=== PATIENT | female | born 1960 | race Caucasian/White ===

== ENCOUNTER → 2016-04-23 | Outpatient (CLI) | payer MEDICARE, OTHER ==
[2016-04-23 11:42] LABS: Basophils # (A) 0.1 k/uL (0-0.2); Basophils % (A) 1 %; CH 25.6; CHCM 31.6; Eosinophils # (A) 0.1 k/uL (0-0.7); Eosinophils % (A) 2 %; HCT 44.7 % (34.0-46.0); HDW 2.53; HGB 13.9 gm/dL (11.4-16.0); Luc # (Auto) 0.13; Luc % (Auto) 2; Lymphocytes # (A) 2.3 k/uL (1.0-4.8); Lymphocytes % (A) 27 %; MCH 25.4 pg (25.0-35.0); MCHC 31.1 g/dL (31.0-37.0); MCV 81.4 fL (80.0-100.0); Monocytes # (A) 0.5 k/uL (0-1.0); Monocytes % (A) 6 %; Neutrophils # (A) 5.4 k/uL (1.3-7.7); Neutrophils % (A) 63 %; RBC 5.49 m/uL (3.80-5.40); WBC 8.6 k/uL (3.8-10.6); WBC (Perox) 8.53
[2016-04-23 12:03] LABS: ALT 29 U/L (9-52); AST 29 U/L (14-36); Alkaline Phosphatase 54 U/L (38-126); Anion Gap 18 mmol/L; Blood Urea Nitrogen 22 mg/dL (7-17); Calcium 9.3 mg/dL (8.4-10.2); Carbon Dioxide 22 mmol/L (22-30); Chloride 100 mmol/L (98-107); Cholesterol 126 mg/dL (<200); Glucose 152 mg/dL (74-99); HDL Cholesterol 44 mg/dL (40-60); Non-African American GFR(MDRD) 48 (>60 ml/min/1.73 sqM); Sodium 140 mmol/L (137-145); Total Bilirubin 0.8 mg/dL (0.2-1.3); Total Protein 7.8 g/dL (6.3-8.2); Triglycerides 142 mg/dL (<150)
[2016-04-23 12:46] LABS: Hepatitis C Virus IgG Index 0.05
[2016-04-23 13:37] LABS: Hepatitis C Virus IgG Ab Negative (Negative)
== END | disposition home or self-care (01) ==
LOC: LABWHC1 11:11
PROVIDERS: ATTEND Family Medicine
DX: E11.9 Type 2 diabetes mellitus without complications (principal); Z13.9 Encounter for screening, unspecified
CPT/HCPCS: 36415; 80053; 80061; 82043; 83036; 84443; 85025; 86803

== ENCOUNTER → 2016-10-29 | Outpatient (CLI) | payer MEDICARE, OTHER ==
[2016-10-29 11:07] LABS: ALT 33 U/L (9-52); AST 21 U/L (14-36); Alkaline Phosphatase 58 U/L (38-126); Anion Gap 16 mmol/L; Blood Urea Nitrogen 21 mg/dL (7-17); Carbon Dioxide 19 mmol/L (22-30); Chloride 106 mmol/L (98-107); Cholesterol 126 mg/dL (<200); Glucose 137 mg/dL (74-99); HDL Cholesterol 36 mg/dL (40-60); Non-African American GFR(MDRD) >60 (>60 ml/min/1.73 sqM); Potassium 4.7 mmol/L (3.5-5.1); Sodium 141 mmol/L (137-145); Total Bilirubin 0.4 mg/dL (0.2-1.3); Total Protein 7.2 g/dL (6.3-8.2)
[2016-10-29 12:26] LABS: Hemoglobin A1C 6.5 % (4.2-6.1)
== END ==
LOC: LABWHC1 10:23
PROVIDERS: ATTEND Family Medicine
DX: E11.9 Type 2 diabetes mellitus without complications (principal)
CPT/HCPCS: 36415; 80053; 80061; 83036

== ENCOUNTER → 2017-04-28 | Outpatient (CLI) | payer MEDICARE, OTHER ==
[2017-04-28 10:58] LABS: ALT 19 U/L (9-52); AST 17 U/L (14-36); Albumin 3.9 g/dL (3.5-5.0); Alkaline Phosphatase 56 U/L (38-126); Anion Gap 16 mmol/L; Blood Urea Nitrogen 20 mg/dL (7-17); Calcium 9.3 mg/dL (8.4-10.2); Carbon Dioxide 21 mmol/L (22-30); Chloride 103 mmol/L (98-107); Cholesterol 137 mg/dL (<200); Glucose 141 mg/dL (74-99); HDL Cholesterol 46 mg/dL (40-60); LDL Cholesterol,Calculated 71 mg/dL (0-99); Potassium 4.6 mmol/L (3.5-5.1); Sodium 140 mmol/L (137-145); Total Bilirubin 0.3 mg/dL (0.2-1.3); Total Protein 7.3 g/dL (6.3-8.2); Triglycerides 99 mg/dL (<150)
[2017-04-28 11:02] LABS: Basophils % (A) 1 %; Eosinophils # (A) 0.2 k/uL (0-0.7); Eosinophils % (A) 2 %; HCT 43.2 % (34.0-46.0); HGB 12.9 gm/dL (11.4-16.0); Hypochromasia Moderate; Lymphocytes # (A) 1.7 k/uL (1.0-4.8); Lymphocytes % (A) 22 %; MCHC 29.9 g/dL (31.0-37.0); MCV 80.4 fL (80.0-100.0); Mean Platelet Volume 7.6; Monocytes # (A) 0.4 k/uL (0-1.0); Monocytes % (A) 5 %; Neutrophils # (A) 5.4 k/uL (1.3-7.7); Neutrophils % (A) 69 %; Platelet Count 284 k/uL (150-450); RBC 5.37 m/uL (3.80-5.40); RDW 13.5 % (11.5-15.5); WBC 7.9 k/uL (3.8-10.6)
[2017-04-28 19:13] LABS: Hemoglobin A1C 6.2 % (4.0-6.0)
== END | disposition home or self-care (01) ==
LOC: LABWHC1 09:48
PROVIDERS: ATTEND Family Medicine
DX: E11.9 Type 2 diabetes mellitus without complications (principal)
CPT/HCPCS: 36415; 80053; 80061; 82043; 82570; 83036; 84443; 85025

== ENCOUNTER → 2018-07-29 | Outpatient (CLI) | payer MEDICARE, OTHER ==
[2018-07-29 20:33] LABS: Anion Gap 12.3 mmol/L (4.00-12.00); Calcium 9.4 mg/dL (8.7-10.3); Carbon Dioxide 19.7 mmol/L (21.6-31.8); Potassium 4.4 mmol/L (3.5-5.5)
[2018-07-29 21:39] LABS: Hemoglobin A1C 5.9 % (4.0-6.0)
== END | disposition home or self-care (01) ==
LOC: LABWHC1 11:47
PROVIDERS: ATTEND Family Medicine
DX: E11.22 Type 2 diabetes mellitus with diabetic chronic kidney disease (principal)
CPT/HCPCS: 36415; 80048; 83036

== ENCOUNTER → 2018-10-28 | Outpatient (CLI) | payer MEDICARE, OTHER ==
[2018-10-28 16:54] LABS: African American GFR (CKD) 70.9 (60.0-200.0); Albumin 4.4 g/dL (3.80-4.90); Albumin/Globulin Ratio 1.76 (1.60-3.17); Anion Gap 10.5 mmol/L (4.00-12.00); Calcium 9.1 mg/dL (8.7-10.3); Carbon Dioxide 23.5 mmol/L (21.6-31.8); Chol/HDL Ratio 3.27; Globulin 2.5 g/dL (1.6-3.3); LDL Cholesterol,Calculated 62.4 mg/dL (0.0-131.0); Potassium 4.4 mmol/L (3.5-5.5); Total Bilirubin 0.5 mg/dL (0.2-1.2); Total Protein 6.9 g/dL (6.2-8.2); VLDL Calculation 21.6 mg/dL (5.00-40.00)
[2018-10-28 18:56] LABS: Hemoglobin A1C 5.6 % (4.0-6.0)
== END | disposition home or self-care (01) ==
LOC: LABWHC1 10:03
PROVIDERS: ATTEND Family Medicine
DX: E11.9 Type 2 diabetes mellitus without complications (principal)
CPT/HCPCS: 36415; 80053; 80061; 83036

== ENCOUNTER → 2019-05-02 | Outpatient (CLI) | payer MEDICARE, OTHER ==
[2019-05-02 11:45] LABS: Basophils % (A) 1 %; Eosinophils # (A) 0.2 k/uL (0-0.7); Eosinophils % (A) 2 %; HCT 45.5 % (34.0-46.0); HGB 14.5 gm/dL (11.4-16.0); Lymphocytes # (A) 1.6 k/uL (1.0-4.8); Lymphocytes % (A) 22 %; MCH 25.9 pg (25.0-35.0); MCHC 31.9 g/dL (31.0-37.0); MCV 81.2 fL (80.0-100.0); Mean Platelet Volume 8.3; Monocytes # (A) 0.4 k/uL (0-1.0); Monocytes % (A) 6 %; Neutrophils # (A) 4.9 k/uL (1.3-7.7); Neutrophils % (A) 68 %; Platelet Count 309 k/uL (150-450); RBC 5.61 m/uL (3.80-5.40); RDW 13.5 % (11.5-15.5); WBC 7.3 k/uL (3.8-10.6)
[2019-05-02 16:53] LABS: Albumin 4.8 g/dL (3.80-4.90); Albumin/Globulin Ratio 1.66 (1.60-3.17); Anion Gap 7.2 mmol/L (4.00-12.00); BUN/Creat Ratio 23.33 Ratio (12.00-20.00); Calcium 9.6 mg/dL (8.7-10.3); Carbon Dioxide 22.8 mmol/L (21.6-31.8); Chol/HDL Ratio 2.9; Globulin 2.9 g/dL (1.6-3.3); LDL Cholesterol,Calculated 70.8 mg/dL (0.0-131.0); Potassium 4.7 mmol/L (3.5-5.5); Total Bilirubin 0.6 mg/dL (0.3-1.2); Total Protein 7.7 g/dL (6.2-8.2); VLDL Calculation 20.2 mg/dL (5.00-40.00)
[2019-05-02 17:00] LABS: T4, Free (Free Thyroxine) 1.5 ng/dL (0.80-1.80)
[2019-05-02 17:28] LABS: Microalbumin Creatinine Ratio <30 mg/g Creat (0-30); Urine Creatinine 73.2 mg/dL
[2019-05-02 19:09] LABS: Hemoglobin A1C 5.8 % (4.0-6.0)
== END | disposition home or self-care (01) ==
LOC: LABWHC1 10:23
PROVIDERS: ATTEND Family Medicine
DX: E11.9 Type 2 diabetes mellitus without complications (principal)
CPT/HCPCS: 36415; 80053; 80061; 82043; 82570; 83036; 84439; 84443; 84481; 85025

== ENCOUNTER → 2019-11-02 | Outpatient (CLI) | payer MEDICARE, OTHER ==
[2019-11-02 19:21] LABS: African American GFR (CKD) 70.4 (60.0-200.0); Albumin 4.6 g/dL (3.80-4.90); Albumin/Globulin Ratio 1.64 (1.60-3.17); Anion Gap 8.9 mmol/L (4.00-12.00); Calcium 9.5 mg/dL (8.7-10.3); Carbon Dioxide 22.1 mmol/L (21.6-31.8); Chol/HDL Ratio 3.23; Globulin 2.8 g/dL (1.6-3.3); LDL Cholesterol,Calculated 86.6 mg/dL (0.0-131.0); Non-African American GFR(CKD) 60.8 (60.0-200.0); Potassium 4.8 mmol/L (3.5-5.5); Total Bilirubin 0.4 mg/dL (0.2-1.2); Total Protein 7.4 g/dL (6.2-8.2); VLDL Calculation 18.4 mg/dL (5.00-40.00)
[2019-11-02 22:36] LABS: Hemoglobin A1C 5.7 % (4.0-6.0)
== END | disposition home or self-care (01) ==
LOC: LABWHC1 10:23
PROVIDERS: ATTEND Family Medicine
DX: E11.9 Type 2 diabetes mellitus without complications (principal)
CPT/HCPCS: 36415; 80053; 80061; 83036

== ENCOUNTER → 2020-05-02 | Outpatient (CLI) | payer MEDICARE, OTHER ==
[2020-05-02 19:38] LABS: Basophils # (A) 0.07 X 10*3/uL (0.00-0.10); Basophils % (A) 0.9 %; Eosinophils # (A) 0.12 X 10*3/uL (0.04-0.35); Eosinophils % (A) 1.5 %; HCT 45.3 % (37.2-46.3); HGB 14.1 g/dL (12.0-15.0); Lymphocytes # (A) 1.68 X 10*3/uL (0.90-5.00); Lymphocytes % (A) 21.2 %; MCH 26.1 pg (27.0-32.0); MCHC 31.1 g/dL (32.0-37.0); MCV 83.7 fL (80.0-97.0); Mean Platelet Volume 11.5 fL (9.5-12.2); Monocytes # (A) 0.59 X 10*3/uL (0.20-1.00); Monocytes % (A) 7.4 %; Neutrophils # (A) 5.44 X 10*3/uL (1.80-7.70); Neutrophils % (A) 68.7 %; Platelet Count 285 X 10*3/uL (140-440); RBC 5.41 X 10*6/uL (4.10-5.20); RDW 13.5 % (11.5-14.5); WBC 7.92 X 10*3/uL (4.50-10.00)
[2020-05-03 01:11] LABS: African American GFR (CKD) 62.3 (60.0-200.0); Albumin 4.5 g/dL (3.80-4.90); Albumin/Globulin Ratio 1.45 (1.60-3.17); BUN/Creat Ratio 25.45 Ratio (12.00-20.00); Calcium 9.7 mg/dL (8.7-10.3); Chol/HDL Ratio 3.58; Globulin 3.1 g/dL (1.6-3.3); LDL Cholesterol,Calculated 79.8 mg/dL (0.0-131.0); Non-African American GFR(CKD) 53.8 (60.0-200.0); Potassium 4.8 mmol/L (3.5-5.5); Total Bilirubin 0.5 mg/dL (0.3-1.2); Total Protein 7.6 g/dL (6.2-8.2); VLDL Calculation 31.2 mg/dL (5.00-40.00)
[2020-05-03 01:20] LABS: T4, Free (Free Thyroxine) 1.4 ng/dL (0.80-1.80)
[2020-05-03 01:21] LABS: Microalbumin Creatinine Ratio <30 mg/g Creat (0-30); Urine Creatinine 29.8 mg/dL
== END | disposition home or self-care (01) ==
LOC: LABWHC1 10:14
PROVIDERS: ATTEND Family Medicine
DX: E03.9 Hypothyroidism, unspecified (principal); E11.9 Type 2 diabetes mellitus without complications
CPT/HCPCS: 36415; 80053; 80061; 82043; 82570; 83036; 84439; 84443; 84481; 85025

== ENCOUNTER → 2021-02-07 | Outpatient (CLI) | payer MEDICARE, OTHER ==
[2021-02-07 15:58] LABS: ALT 22 U/L (8-44); AST 18 U/L (13-35); African American GFR (CKD) 71.7 (60.0-200.0); Albumin 4.4 g/dL (3.8-4.9); Albumin/Globulin Ratio 1.43 (1.60-3.17); Alkaline Phosphatase 50 U/L (41-126); Blood Urea Nitrogen 23.3 mg/dL (9.0-27.0); Calcium 9.4 mg/dL (8.7-10.3); Carbon Dioxide 19.2 mmol/L (20.0-27.5); Chloride 103 mmol/L (96-109); Chol/HDL Ratio 3.39 Ratio; Globulin 3.1 g/dL (1.6-3.3); Glucose 139 mg/dL (70-110); LDL Cholesterol,Calculated 73.7 mg/dL (0.0-131.0); Non-African American GFR(CKD) 61.9 (60.0-200.0); Potassium 4.3 mmol/L (3.5-5.5); Sodium 139 mmol/L (135-145); Total Protein 7.5 g/dL (6.2-8.2)
== END | disposition home or self-care (01) ==
LOC: LABWHC1 10:21
PROVIDERS: ATTEND Family Medicine
DX: E11.9 Type 2 diabetes mellitus without complications (principal)
CPT/HCPCS: 36415; 80053; 80061; 83036

== ENCOUNTER → 2021-08-08 | Outpatient (CLI) | payer MEDICARE, OTHER ==
[2021-08-08 19:35] LABS: Basophils # (A) 0.04 X 10*3/uL (0.00-0.10); Basophils % (A) 0.5 %; Eosinophils # (A) 0.12 X 10*3/uL (0.04-0.35); Eosinophils % (A) 1.4 %; HCT 44.4 % (37.2-46.3); HGB 13.4 g/dL (12.0-15.0); Immature Grans, Automated 0.5 %; Lymphocytes # (A) 1.68 X 10*3/uL (0.90-5.00); Lymphocytes % (A) 19.4 %; MCH 25.1 pg (27.0-32.0); MCHC 30.2 g/dL (32.0-37.0); MCV 83.3 fL (80.0-97.0); Mean Platelet Volume 11.8 fL (9.5-12.2); Monocytes % (A) 6.9 %; NRBC Per 100 WBC 0 /100 WBCS (0.0-0.0); Neutrophils % (A) 71.3 %; Platelet Count 294 X 10*3/uL (140-440); RBC 5.33 X 10*6/uL (4.10-5.20); WBC 8.68 X 10*3/uL (4.50-10.00)
[2021-08-08 22:48] LABS: ALT 22 U/L (8-44); AST 17 U/L (13-35); African American GFR (CKD) 64.7 (60.0-200.0); Albumin 4.4 g/dL (3.8-4.9); Albumin/Globulin Ratio 1.43 (1.60-3.17); Alkaline Phosphatase 56 U/L (41-126); BUN/Creat Ratio 18.77 Ratio (12.00-20.00); Blood Urea Nitrogen 19.9 mg/dL (9.0-27.0); Calcium 9.5 mg/dL (8.7-10.3); Carbon Dioxide 19.6 mmol/L (20.0-27.5); Chloride 101 mmol/L (96-109); Chol/HDL Ratio 3.49 Ratio; Globulin 3.1 g/dL (1.6-3.3); Glucose 145 mg/dL (70-110); LDL Cholesterol,Calculated 81.3 mg/dL (0.0-131.0); Non-African American GFR(CKD) 55.8 (60.0-200.0); Potassium 4.7 mmol/L (3.5-5.5); Sodium 137 mmol/L (135-145); Total Protein 7.4 g/dL (6.2-8.2)
[2021-08-08 23:14] LABS: Microalbumin Creatinine Ratio <30 mg/g Creat (0-30)
== END | disposition home or self-care (01) ==
LOC: LABWHC1 11:12
PROVIDERS: ATTEND Family Medicine
DX: E03.9 Hypothyroidism, unspecified (principal); E11.9 Type 2 diabetes mellitus without complications
CPT/HCPCS: 36415; 80053; 80061; 82043; 82570; 83036; 84443; 84481; 85025

== ENCOUNTER → 2022-02-05 | Outpatient (CLI) | payer MEDICARE, OTHER ==
[2022-02-05 17:23] LABS: BUN/Creat Ratio 23.75 Ratio (12.00-20.00); Blood Urea Nitrogen 28.5 mg/dL (9.0-27.0); Carbon Dioxide 20.8 mmol/L (20.0-27.5); Chloride 100 mmol/L (96-109); Glucose 165 mg/dL (70-110); Potassium 4.9 mmol/L (3.5-5.5); Sodium 138 mmol/L (135-145)
[2022-02-05 17:24] LABS: ALT 27 U/L (8-44); AST 22 U/L (13-35); African American GFR (CKD) 55.7 (60.0-200.0); Albumin 4.5 g/dL (3.8-4.9); Albumin/Globulin Ratio 1.36 (1.60-3.17); Alkaline Phosphatase 59 U/L (41-126); Calcium 9.6 mg/dL (8.7-10.3); Globulin 3.3 g/dL (1.6-3.3); LDL Cholesterol,Calculated 78.6 mg/dL (0.0-131.0); Non-African American GFR(CKD) 48.1 (60.0-200.0); Total Protein 7.8 g/dL (6.2-8.2)
== END | disposition home or self-care (01) ==
LOC: LABWHC1 10:41
PROVIDERS: ATTEND Family Medicine
DX: E11.9 Type 2 diabetes mellitus without complications (principal)
CPT/HCPCS: 36415; 80053; 80061; 83036

== ENCOUNTER → 2022-08-05 | Outpatient (CLI) | payer MEDICARE, OTHER ==
[2022-08-05 15:20] LABS: Basophils # (A) 0.05 X 10*3/uL; Basophils % (A) 0.5 %; Eosinophils # (A) 0.15 X 10*3/uL; Eosinophils % (A) 1.5 %; HCT 43.8 %; HGB 13.6 d/dL; Lymphocytes # (A) 1.96 X 10*3/uL; Lymphocytes % (A) 19.1 %; MCH 25.8 pg; MCHC 31.1 d/dL; MCV 83.1 FL; Mean Platelet Volume 11.1 FL; Monocytes # (A) 0.68 X 10*3/uL; Monocytes % (A) 6.6 %; NRBC Per 100 WBC 0 X 10*3/uL; Neutrophils # (A) 7.39 X 10*3/uL; Neutrophils % (A) 71.8 %; Platelet Count 304 X 10*3/uL; RBC 5.27 X 10*6/uL; RDW 14.3 %; WBC 10.28 X 10*3/uL
[2022-08-05 16:07] LABS: ALT 26 U/L; AST 21 U/L; Albumin 4.3 d/dL; Albumin/Globulin Ratio 1.39 Ratio; Alkaline Phosphatase 54 U/L; BUN/Creat Ratio 19.17 Ratio; Calcium 9.8 mg/dL; Carbon Dioxide 20.3 mmol/L; Chloride 102 mmol/L; Chol/HDL Ratio 3.17 Ratio; Globulin 3.1 d/dL; Glucose 154 mg/dL; LDL Cholesterol,Calculated 86.7 mg/dL; Potassium 4.6 mmol/L; Sodium 139 mmol/L; Total Bilirubin 0.4 mg/dL; Total Protein 7.4 d/dL
[2022-08-05 18:21] LABS: Microalbumin Creatinine Ratio <35 mg/g Cr; Urine Creatinine 34.7 mg/dL
== END | disposition home or self-care (01) ==
LOC: LABWHC1 10:00
PROVIDERS: ATTEND Family Medicine
DX: E11.9 Type 2 diabetes mellitus without complications (principal); E03.9 Hypothyroidism, unspecified
CPT/HCPCS: 36415; 80053; 80061; 82043; 82570; 83036; 84443; 84481; 85025

== ENCOUNTER → 2023-08-12 | Outpatient (CLI) | payer MEDICARE, OTHER ==
[2023-08-12 18:17] LABS: Basophils # (A) 0.05 X 10*3/uL (0.00-0.10); Basophils % (A) 0.4 %; Eosinophils # (A) 0.06 X 10*3/uL (0.04-0.35); Eosinophils % (A) 0.5 %; HCT 47.1 % (37.2-46.3); HGB 13.8 g/dL (12.0-15.0); Lymphocytes # (A) 1.69 X 10*3/uL (0.90-5.00); Lymphocytes % (A) 13.8 %; MCH 23.9 pg (27.0-32.0); MCHC 29.3 g/dL (32.0-37.0); MCV 81.6 FL (80.0-97.0); Mean Platelet Volume 11.4 FL (9.5-12.2); Monocytes # (A) 0.72 X 10*3/uL (0.20-1.00); Monocytes % (A) 5.9 %; NRBC Per 100 WBC 0 X 10*3/uL (0.00-0.01); Neutrophils # (A) 9.68 X 10*3/uL (1.80-7.70); Neutrophils % (A) 78.7 %; Platelet Count 342 X 10*3/uL (140-440); RBC 5.77 X 10*6/uL (4.10-5.20); RDW 14.7 % (11.5-14.5); WBC 12.28 X 10*3/uL (4.50-10.00)
[2023-08-12 18:33] LABS: ALT 17 U/L (8-44); AST 18 U/L (13-35); Albumin 4.4 g/dL (3.8-4.9); Albumin/Globulin Ratio 1.33 Ratio (1.60-3.17); Alkaline Phosphatase 53 U/L (41-126); BUN/Creat Ratio 22.83 Ratio (12.00-20.00); Blood Urea Nitrogen 27.4 mg/dL (9.0-27.0); Calcium 10.1 mg/dL (8.7-10.3); Carbon Dioxide 17.4 mmol/L (21.6-31.8); Chloride 100 mmol/L (96-109); Globulin 3.3 g/dL (1.6-3.3); Glucose 180 mg/dL (70-110); LDL Cholesterol,Calculated 75.2 mg/dL (0.0-131.0); Potassium 4.6 mmol/L (3.5-5.5); Sodium 136 mmol/L (135-145); T4, Free (Free Thyroxine) 1.39 ng/dL (0.80-1.80); Total Bilirubin 0.5 mg/dL (0.3-1.2); Total Protein 7.7 g/dL (6.2-8.2)
[2023-08-12 21:00] LABS: Microalbumin Creatinine Ratio <30 mg/g Cr (0-30); Urine Creatinine 40.2 mg/dL (28.0-217.0)
== END | disposition home or self-care (01) ==
LOC: LABWHC1 09:50
PROVIDERS: ATTEND Family Medicine
DX: E11.9 Type 2 diabetes mellitus without complications (principal)
CPT/HCPCS: 36415; 80053; 80061; 82043; 82570; 83036; 84439; 84443; 84481; 85025

== ENCOUNTER → 2024-01-25 | Outpatient (CLI) | payer MEDICARE, OTHER ==
[2024-01-25 16:29] LABS: LDL Cholesterol,Calculated 49.7 mg/dL (0.0-131.0)
[2024-01-25 16:30] LABS: ALT 23 U/L (8-44); AST 20 U/L (13-35); Albumin 4.3 g/dL (3.8-4.9); Albumin/Globulin Ratio 1.48 Ratio (1.60-3.17); Alkaline Phosphatase 50 U/L (41-126); BUN/Creat Ratio 20.77 Ratio (12.00-20.00); Calcium 9.6 mg/dL (8.7-10.3); Carbon Dioxide 14.6 mmol/L (21.6-31.8); Chloride 102 mmol/L (96-109); Globulin 2.9 g/dL (1.6-3.3); Glucose 182 mg/dL (70-110); Potassium 4.8 mmol/L (3.5-5.5); Sodium 139 mmol/L (135-145); Total Bilirubin 0.4 mg/dL (0.3-1.2); Total Protein 7.2 g/dL (6.2-8.2)
== END | disposition home or self-care (01) ==
LOC: LABWHC1 08:49
PROVIDERS: ATTEND Family Medicine
DX: E11.9 Type 2 diabetes mellitus without complications (principal)
CPT/HCPCS: 36415; 80053; 80061; 83036